=== PATIENT | male | born 1960 | race Caucasian/White ===

== ENCOUNTER 2019-07-19 20:04 | Inpatient (IN) | payer OTHER ==
[~2019-07-19] VITALS: Ht 182.9 cm; Wt 74.4 kg
[2019-07-19 20:10] VITALS: BP 110/85
--- NOTE | 2019-07-19 20:10 | NUR ---
ED Nurse Note: Pt brought in from home by GARRY BATISTA 40 for rectal bleed onset four days ago. Pt is also reporting multiple black tarry stools. Pt has hx of sciatica and is c/o back pain that radiates down his R leg and abdominal pain at this time. Pt has pale appearence and is cool to the touch. Pt connected to patient monitor and placed in gown. ERMD at bedside. IV line established and blood drawn by RN. Will continue to monitor.
[2019-07-19] MEDS ORDERED: Omnipaque-300 100ml vial INJ PRN (20:30)
[2019-07-19] MEDS ORDERED: Hydromorphone 0.5mg/0.5ml inj IVP ONE (20:30)
[2019-07-19 20:42] LABS: HEMATOCRIT 12.1 % (42.0-52.0); MEAN CORPUSCULAR VOLUME 94 FL (80-99); PLATELET COUNT 362 K/UL (150-450); RED BLOOD COUNT 1.29 M/UL (4.70-6.10); RED CELL DISTRIBUTION WIDTH 10.7 % (11.6-14.8); WHITE BLOOD COUNT 13.8 K/UL (4.8-10.8)
[2019-07-19 20:52] LABS: INR 1.1 (0.9-1.1)
[2019-07-19 20:53] LABS: ANION GAP 19 mmol/L (5-15); BLOOD UREA NITROGEN 59 mg/dL (7-18); CALCIUM 7.5 MG/DL (8.5-10.1); CARBON DIOXIDE 13 MMOL/L (21-32); CHLORIDE 111 MMOL/L (98-107); CREATININE 1.7 MG/DL (0.55-1.30); HEMOGLOBIN 4.3 G/DL (14.2-18.0); SODIUM 143 MMOL/L (136-145)
[2019-07-19 20:59] LABS: ALANINE AMINOTRANSFERASE 23 U/L (12-78); ALBUMIN 1.8 G/DL (3.4-5.0); ALBUMIN/GLOBULIN RATIO 0.6 (1.0-2.7); ALKALINE PHOSPHATASE 42 U/L (46-116); ASPARTATE AMINO TRANSFERASE 15 U/L (15-37); BILIRUBIN,TOTAL 0.1 MG/DL (0.2-1.0)
--- NOTE | 2019-07-19 21:10 | NUR ---
ED Nurse Note: Pt taken to CT at this time via mayra.
[2019-07-19 21:30] VITALS: BP 110/49
--- NOTE | 2019-07-19 22:07 | Diagnostic Imaging Report ---
Indication: Abdominal pain, rectal bleed onset 4 days ago, black tarry stools Technique: Spiral acquisitions obtained through the abdomen and pelvis. No oral contrast utilized, per emergency room physician request No IV contrast utilized, due to history of renal insufficiency. Multiplanar reconstructions were generated. Total dose length product 856 mGycm. CTDIvol(s) 15 mGy. Dose reduction achieved using automated exposure control Comparison: None Findings: There is colonic diverticulosis. No evidence of acute diverticulitis. Normal appendix. No small bowel distention. No free or loculated intraperitoneal gas or fluid is evident. There is an aortic endograft with juxtarenal fixation demonstrated. Patency is indeterminate in the absence of IV contrast. The aneurysm sac measures 4.9 cm transverse by 4.9 cm AP by 12.6 cm in length. There is no evidence of leakage or rupture. Lack of IV contrast limits assessment of the solid organs. The liver, gallbladder, bile ducts, pancreas, spleen, adrenals, kidneys are unremarkable. There is incidentally noted a circumaortic left renal vein. No renal or ureteral calculi, hydronephrosis, or hydroureter demonstrated. No pelvic mass or adenopathy. No retroperitoneal or mesenteric mass or adenopathy. The bladder is nondistended. There is apparent bladder wall thickening, probably artifact of under distention The included lung bases demonstrate hyperinflation and bullous changes. The bones are unremarkable, except for degenerative spondylosis changes. Impression: No definite acute abdominal process. No findings to suggest etiology of stated clinical history of GI bleed Aortic endograft in place. Patency is indeterminate in the absence of IV contrast. Also unable to assess for endoleaks. No evidence of leakage or rupture COPD changes noted at the lung bases Apparent bladder wall thickening, probably artifact of under distention but the possibility of cystitis should be considered Incidental findings as noted, including degenerative spondylosis, circumaortic left renal vein This agrees with the preliminary interpretation provided overnight by [facility] teleradiology service. The CT scanner at [facility] is accredited by the [employer] and the scans are performed using protocols designed to limit radiation exposure to as low as reasonably achievable to attain images of sufficient resolution adequate for diagnostic evaluation.
--- NOTE | 2019-07-19 23:00 | NUR ---
ED Nurse Note: Report given to SARAHI Mason.
--- NOTE | 2019-07-19 23:00 | NUR ---
ED Nurse Note: Pt stable to transfer to tele unit per ERMD. Pt is aaox4, no cardiac or respiratory distress, pt verbalized understanding of admission. Pt taken to tele unit via gurney with 2 RN, connected to trial manager. Pt has packed red blood cells infusing at this time via iv pump, endorsed order for 2nd unit of blood to receiving RN on tele unit. All pt belongings sent with pt to unit.
--- NOTE | 2019-07-19 23:10 | Emergency Room Report ---
History of Present Illness General Chief Complaint: Gastrointestinal Bleed Source: Patient Present Illness HPI 58-year-old male presents ED for evaluation. Coming by EMS from home. Black tarry stools for the last 4 days. Patient appears pale and clammy. States he has had similar bloody stools in the past. Also complaining of abdominal pain. Sharp, 9 out of 10, nonradiating. States he has had prior perforated viscus. Denies fevers or chills. Denies chest pain. Denies taking blood thinners. No other aggravating relieving factors. Denies any other associated symptoms Allergies: Coded Allergies: No Known Allergies (Unverified , 07/19/19) Patient History Past Surgical History: other - perforated ulcer Pertinent Family History: none Social History: Denies: smoking, alcohol use, drug use Immunizations: UTD Reviewed Nursing Documentation: PMH: Agreed; PSxH: Agreed Nursing Documentation-PM Past Medical History: No History, Except For Hx Cardiac Problems: Yes - PERCARDITIS Review of Systems All Other Systems: negative except mentioned in HPI Physical Exam Vital Signs Date Time Temp Pulse Resp B/P (MAP) Pulse Ox O2 Delivery O2 Flow Rate FiO2 07/19/19 19:59 98.1 106 22 110/85 (93) 98 Room Air Sp02 EP Interpretation: reviewed, normal General Appearance: no apparent distress, alert, GCS 15, non-toxic Head: normocephalic, atraumatic Eyes: bilateral eye normal inspection, bilateral eye PERRL ENT: hearing grossly normal, normal pharynx, no angioedema, normal voice Neck: full range of motion, supple/symm/no masses Respiratory: chest non-tender, lungs clear, normal breath sounds, speaking full sentences Cardiovascular #1: regular rate, rhythm, no edema Cardiovascular #2: 2+ carotid (R), 2+ carotid (L), 2+ radial (R), 2+ radial (L) , 2+ dorsalis pedis (R), 2+ dorsalis pedis (L) Gastrointestinal: normal bowel sounds, soft, non-distended, no rebound, tenderness Rectal: deferred Genitourinary: normal inspection, no CVA tenderness Musculoskeletal: back normal, normal range of motion, gait/station normal, non- tender Neurologic: alert, motor strength/tone normal, oriented x3, sensory intact, responsive, speech normal Psychiatric: judgement/insight normal, memory normal, mood/affect normal, no suicidal/homicidal ideation Reflexes: 3+ bicep (R), 3+ bicep (L), 3+ tricep (R), 3+ tricep (L), 3+ knee (R) , 3+ knee (L) Skin: pallor Lymphatic: no adenopathy Procedures Critical Care Time Critical Care Time i. I feel this is a highly complex case requiring extensive working including EKG/Rhythm strip, Xray/CT/US, Blood/urine lab work, repeat exams while in ED, and administration of strong opiates/narcotics for pain control, admission to hospital or close patient follow up. Total time: 60 min bedside evaluation and treatment excludes procedures (EKG). Reason for critical care: LGIB, hypotension, anemia Possible complications: hypotension, hypertension, OR, shock, arrhythmias, metabolic acidosis, end organ damage, respiratory failure. Interventions: labs, EKG, IVFS, CT, pain meds, blood transfusion Course: Presenting with black tarry stools. Abdominal pain. Hemoglobin 4.3. CT shows no acute process. Patient became somewhat hypotensive. Improving with IV fluids. Blood transfusion started. Consultations: nursing staff, EMS, family Performed by: Dr Allred Tolerated well condition = serious j. because of unstable vital signs this patient had a condition that could potentially threaten life or limb. I feel this is a critical patient who required my full attention while patient was considered critical. Total Critical Care Time excluding procedures was greater than 60 minutes Medical Decision Making Diagnostic Impression: Primary Impression: LGI bleed Additional Impressions: Anemia Qualified Codes: D64.9 - Anemia, unspecified Renal insufficiency Abdominal pain Qualified Codes: R10.84 - Generalized abdominal pain ER Course Hospital Course 58-year-old M presents to ED with rectal bleeding Differential diagnoses include: UGIB, LGIB, hemorrhoids Clinical course Patient placed on stretcher. threat monitoring analyst. After initial history and physical I ordered labs, IV fluids, pain meds, CT Labs - noted leukocytosis, Hb 4.3, BUN/Cr elevated CT A/P - no acute process EKG - NSR, no acute ischemic changes interpreted by me Patient became hypotensive in ED. IV fluids given. Blood transfusion started. BP slowly improving. Case discussed with Dr. Lazcano and he agreed to accept the patient to his service for further care and support I feel this is a highly complex case requiring extensive working including EKG/ Rhythm strip, Xray/CT/US, Blood/urine lab work, repeat exams while in ED, and administration of strong opiates/narcotics for pain control, admission to hospital or close patient follow up. Diagnosis - LGIB, anemia, renal insufficency, abdominal pain Patient admitted to telemetry in serious condition Labs Test 07/19/19 20:15 White Blood Count 13.8 K/UL (4.8-10.8) Red Blood Count 1.29 M/UL (4.70-6.10) Hemoglobin 4.3 G/DL (14.2-18.0) Hematocrit 12.1 % (42.0-52.0) Mean Corpuscular Volume 94 FL (80-99) Mean Corpuscular Hemoglobin 33.2 PG (27.0-31.0) Mean Corpuscular Hemoglobin Concent 35.3 G/DL (32.0-36.0) Red Cell Distribution Width 10.7 % (11.6-14.8) Platelet Count 362 K/UL (150-450) Mean Platelet Volume 5.4 FL (6.5-10.1) Neutrophils (%) (Auto) % (45.0-75.0) Lymphocytes (%) (Auto) % (20.0-45.0) Monocytes (%) (Auto) % (1.0-10.0) Eosinophils (%) (Auto) % (0.0-3.0) Basophils (%) (Auto) % (0.0-2.0) Differential Total Cells Counted 100 Neutrophils % (Manual) 74 % (45-75) Lymphocytes % (Manual) 18 % (20-45) Monocytes % (Manual) 6 % (1-10) Eosinophils % (Manual) 0 % (0-3) Basophils % (Manual) 0 % (0-2) Band Neutrophils 2 % (0-8) Platelet Estimate Adequate Platelet Morphology Normal Hypochromasia 2+ Anisocytosis 2+ Prothrombin Time 11.3 SEC (9.30-11.50) Prothromb Time International Ratio 1.1 (0.9-1.1) Activated Partial Thromboplast Time 21 SEC (23-33) Sodium Level 143 MMOL/L (136-145) Potassium Level 5.0 MMOL/L (3.5-5.1) Chloride Level 111 MMOL/L (98-107) Carbon Dioxide Level 13 MMOL/L (21-32) Anion Gap 19 mmol/L (5-15) Blood Urea Nitrogen 59 mg/dL (7-18) Creatinine 1.7 MG/DL (0.55-1.30) Estimat Glomerular Filtration Rate 41.5 mL/min (>60) Glucose Level 209 MG/DL (74-106) Calcium Level 7.5 MG/DL (8.5-10.1) Total Bilirubin 0.1 MG/DL (0.2-1.0) Aspartate Amino Transf (AST/SGOT) 15 U/L (15-37) Alanine Aminotransferase (ALT/SGPT) 23 U/L (12-78) Alkaline Phosphatase 42 U/L (46-116) Total Protein 4.7 G/DL (6.4-8.2) Albumin 1.8 G/DL (3.4-5.0) Globulin 2.9 g/dL Albumin/Globulin Ratio 0.6 (1.0-2.7) Lipase 56 U/L (73-393) EKG Diagnostic Results Rate: normal Rhythm: NSR ST Segments: no acute changes ASA given to the pt in ED: No Rhythm Strip Diag. Results EP Interpretation: yes Rhythm: NSR, no PVC's, no ectopy CT/MRI/US Diagnostic Results CT/MRI/US Diagnostic Results : Imaging Test Ordered: CT A/P Impression CT ABDOMEN & PELVIS With Contrast: Normal cardiac size. Normal abdominal viscera including gallbladder and adrenal glands. Decompressed stomach with no hiatal hernia. Unremarkable small bowel and colon with no signs of bowel obstruction. No focal inflammatory process. Distinct appendix not visualized. Postoperative changes along the aorta with endovascular stent extending to the bilateral common iliac arteries. Maximum diameter of the aorta measures 4.8 x 4.8 cm. No surrounding inflammatory process or evidence of leak. Degenerative disease of the spine. Cystic/emphysematous changes of the lung bases with minimal scarring, otherwise clear. No pleural effusion. Last Vital Signs Date Time Temp Pulse Resp B/P (MAP) Pulse Ox O2 Delivery O2 Flow Rate FiO2 07/19/19 22:25 97.1 95 24 07/19/19 21:30 110/49 100 Room Air Status: improved Disposition: ADMITTED INPATIENT Condition: Serious Referrals: [facility],REFERRING (PCP) Panfilo Allred MD Jul 19, 2019 23:10
--- NOTE | 2019-07-19 23:15 | NUR ---
NURSE NOTES: Pt received from SARAHI Sauceda alert and oriented x4 with no acute s/s of distress noted. Pale with notable weakness noted. IV site asymptomatic and patent on L hand 18g and R ac 20g, running to 1 Unit of PRBC. Belongings with patient upon admission, including watch, reading glasses, Samsung cellphone, and hollingsworth (three $20, one $5, and two $1). Patient refused to have valuables and hollingsworth placed in safe. Bed in lowest position, call light and belongings within reach. Per pt, he started developing black stool for the last 4 days as he has been taking Advil (16 tablets per day, unknown dosage per pt) for the last month which he has recently switched to Ibuprofen 600 mg on 07/16/2019 to self-medicate his back pain from his sciatica.
[2019-07-19 23:55] VITALS: BP 125/57
[2019-07-20] MEDS: HYDROcodone/Acetamin 10/325 tab ORAL PRN ×5 (00:06→15:41)
--- NOTE | 2019-07-20 00:10 | NUR ---
NURSE NOTES: Received admission orders from Dr. Lazcano. - Pls give 4 Units of PRBC to patient in total tonight. - Start NS at 75 for maintenance - Protonix 40 mg BID PO - Zofran 4 mg q4h PRN for nausea and vomiting - CBC, BMP in AM - clear liquid - Physician Consult - Allen for GI - Stanton 10/325 q4h PRN for pain - Full code - Home meds - hold metoprolol 75 mg PO daily, and hold ibuprofen 600 mg q12h PRN for pain.
[2019-07-20] MEDS ORDERED: IBUPROFEN600 MG ORAL (01:22)
[2019-07-20] MEDS ORDERED: metoprolol tartrate ORAL (01:25)
[2019-07-20 04:00] VITALS: BP 134/66
--- NOTE | 2019-07-20 05:55 | NUR ---
NURSE NOTES: Patient brought medications - Metoprolol 25 mg and Ibuprofen 600 mg - with him from home, dropped off to pharmacy and recorded in medication reconciliation.
--- NOTE | 2019-07-20 06:01 | NUR ---
NURSE NOTES: Pt requested to have nicotine patch as he is a current smoker. Per pt, he has been smoking for the last 40 years and he smokes 5-10 cigarettes a day. Per audrey Severino to continue nicotine patch for patient. RN spoke with Nadine pharmacist from [facility] who suggested dosage of 14 mg Nicotine patch qdaily transdermal. Will carry out orders.
--- NOTE | 2019-07-20 07:15 | NUR ---
NURSE NOTES: Nurse report given by SARAHI Ruiz. Patient's awake and eating breakfast in bed. AO x 4, denies pain, no s/s of distress or SOB, respiratory rate is even and unlabored. Bed low and locked, call light within reach, side rails x 2, bed alarm is armed. IV is running fluid, no s/s of tenderness or infiltration. Rectal bleeding is noted. Will continue to monitor.
--- NOTE | 2019-07-20 07:15 | NUR ---
HAND-OFF: Report given to SARAHI Ascencio.
[2019-07-20 07:17] LABS: HEMATOCRIT 24.2 % (42.0-52.0); HEMOGLOBIN 8.5 G/DL (14.2-18.0); MEAN CORPUSCULAR VOLUME 91 FL (80-99); PLATELET COUNT 254 K/UL (150-450); RED BLOOD COUNT 2.64 M/UL (4.70-6.10); RED CELL DISTRIBUTION WIDTH 11.9 % (11.6-14.8)
[2019-07-20 07:41] LABS: ANION GAP 9 mmol/L (5-15); BLOOD UREA NITROGEN 50 mg/dL (7-18); CALCIUM 7.4 MG/DL (8.5-10.1); CARBON DIOXIDE 21 MMOL/L (21-32); CHLORIDE 115 MMOL/L (98-107); CREATININE 1.1 MG/DL (0.55-1.30); POTASSIUM 3.7 MMOL/L (3.5-5.1); SODIUM 145 MMOL/L (136-145)
[2019-07-20 08:00] VITALS: BP 122/72
--- NOTE | 2019-07-20 08:14 | History & Physical ---
History and Physical History & Physicial 58-year-old male presents for GIB. Patient with black tarry stools for the last 4 days. Now underwent transfusion. States he has had similar bloody stools in the past.+ abdominal pain. States he has had prior perforated viscus in the past. Denies fevers or chills. Denies chest pain. Denies taking blood thinners. No other aggravating relieving factors. Denies any other associated symptoms Allergies: No Known Allergies (Unverified , 07/19/19) Past Surgical History: perforated ulcer Pertinent Family History: none Social History: Denies: smoking, alcohol use, drug use Reviewed of systems: otherwise negative Physical WDWN NAD clear breath sounds bilaterally without rhonchi or wheeze [id number] without MRG NABS nontender no HSM no CCE nonfocal Laboratory Tests Test 07/19/19 20:15 07/20/19 06:38 White Blood Count 13.8 K/UL (4.8-10.8) H 13.0 K/UL (4.8-10.8) H Red Blood Count 1.29 M/UL (4.70-6.10) L 2.64 M/UL (4.70-6.10) L Hemoglobin 4.3 G/DL (14.2-18.0) *L 8.5 G/DL (14.2-18.0) #L Hematocrit 12.1 % (42.0-52.0) L 24.2 % (42.0-52.0) #L Mean Corpuscular Volume 94 FL (80-99) 91 FL (80-99) Mean Corpuscular Hemoglobin 33.2 PG (27.0-31.0) H 32.3 PG (27.0-31.0) H Mean Corpuscular Hemoglobin Concent 35.3 G/DL (32.0-36.0) 35.3 G/DL (32.0-36.0) Red Cell Distribution Width 10.7 % (11.6-14.8) L 11.9 % (11.6-14.8) Platelet Count 362 K/UL (150-450) 254 K/UL (150-450) Mean Platelet Volume 5.4 FL (6.5-10.1) L 5.8 FL (6.5-10.1) L Neutrophils (%) (Auto) % (45.0-75.0) % (45.0-75.0) Lymphocytes (%) (Auto) % (20.0-45.0) % (20.0-45.0) Monocytes (%) (Auto) % (1.0-10.0) % (1.0-10.0) Eosinophils (%) (Auto) % (0.0-3.0) % (0.0-3.0) Basophils (%) (Auto) % (0.0-2.0) % (0.0-2.0) Differential Total Cells Counted 100 Neutrophils % (Manual) 74 % (45-75) Pending Lymphocytes % (Manual) 18 % (20-45) L Pending Monocytes % (Manual) 6 % (1-10) Eosinophils % (Manual) 0 % (0-3) Basophils % (Manual) 0 % (0-2) Band Neutrophils 2 % (0-8) Platelet Estimate Adequate Pending Platelet Morphology Normal Pending Hypochromasia 2+ Anisocytosis 2+ Prothrombin Time 11.3 SEC (9.30-11.50) Prothromb Time International Ratio 1.1 (0.9-1.1) Activated Partial Thromboplast Time 21 SEC (23-33) L Sodium Level 143 MMOL/L (136-145) 145 MMOL/L (136-145) Potassium Level 5.0 MMOL/L (3.5-5.1) 3.7 MMOL/L (3.5-5.1) Chloride Level 111 MMOL/L (98-107) H 115 MMOL/L (98-107) H Carbon Dioxide Level 13 MMOL/L (21-32) L 21 MMOL/L (21-32) Anion Gap 19 mmol/L (5-15) H 9 mmol/L (5-15) Blood Urea Nitrogen 59 mg/dL (7-18) H 50 mg/dL (7-18) H Creatinine 1.7 MG/DL (0.55-1.30) H 1.1 MG/DL (0.55-1.30) Estimat Glomerular Filtration Rate 41.5 mL/min (>60) > 60 mL/min (>60) Glucose Level 209 MG/DL (74-106) H 110 MG/DL (74-106) #H Calcium Level 7.5 MG/DL (8.5-10.1) L 7.4 MG/DL (8.5-10.1) L Total Bilirubin 0.1 MG/DL (0.2-1.0) L Aspartate Amino Transf (AST/SGOT) 15 U/L (15-37) Alanine Aminotransferase (ALT/SGPT) 23 U/L (12-78) Alkaline Phosphatase 42 U/L (46-116) L Total Protein 4.7 G/DL (6.4-8.2) L Albumin 1.8 G/DL (3.4-5.0) L Globulin 2.9 g/dL Albumin/Globulin Ratio 0.6 (1.0-2.7) L Lipase 56 U/L (73-393) L IMPRESSION gib ANEMIA S/P TRANSFUSION SCIATICA PLAN monitor HH pain management GI evaluation protonix follow up vitals and recommend impression, plan, and exam edited and reviewed in detail care discussed with Juan Guerrero MD Jul 20, 2019 08:14
--- NOTE | 2019-07-20 11:07 | NUR ---
*-* INSURANCE *-* ALL AVAILABLE CLINICALS HAVE BEEN FAXED TO: [facility] NCM: GRACIELA P- [phone] F- [phone]............REVIEW/CLINICAL
--- NOTE | 2019-07-20 11:33 | NUR ---
NURSE NOTES: Left several messages to Dr. Lazcano's regarding patient's complain of excruciating pain on left leg. Patient requests to have pain medication that is stronger than [place]. Still awaiting for MD response.
[2019-07-20 12:00] VITALS: BP 118/72
[2019-07-20 16:00] VITALS: BP 117/73
--- NOTE | 2019-07-20 16:15 | NUR ---
CASE MANAGEMENT:REVIEW 58 YR OLD MALE BIBA FROM HOME CC: RECTAL BLEEDING. TARRY STOOLS SI: LGIB 98.0 106 22 110/85 98% ON RA WBC+13.8 H/H-4.3/12.1 IS: IV DILAUDID 1L NS BOLUS X2 CT ABD TRANSFUSE 4 UNITS PRBC'S : TO TELEMETRY
--- NOTE | 2019-07-20 17:19 | NUR ---
NURSE NOTES: Patient's receiving the last bag of 1 unit of PRBC. Patient's first vital sign: BP 125/72, Temp 97.9, Pulse 92. Patient's in stable condition. Started transfusion at 0950. Patient tolerated well, no s/s of adverse reaction, denies flank pain, no fever, no rash. Patient completed transfusion at 1230. Post transfusion vital sign: BP 144/77, Temp 97.2, Pulse 89. Patient's in stable condition. Will continue to monitor.
--- NOTE | 2019-07-20 18:30 | Consultation ---
DATE OF CONSULTATION: 07/20/2019 GASTROENTEROLOGY CONSULTATION CONSULTING PHYSICIAN: Jyoti Villa M.D. CHIEF COMPLAINT: I was asked to see this patient by Dr. Juan Lazcano, for evaluation of gastrointestinal bleeding and anemia. HISTORY OF PRESENT ILLNESS: The patient is a pleasant 58-year-old white man with a longstanding history of back pain, who has noticed worsening of his back pain with sciatica type of symptoms for the past month. He has been taking up to 16 Advil tablets a day and had noted that the stool is becoming black over the past week or so. The patient had a history of a perforated peptic ulcer about two years ago and was admitted to the hospital where he underwent an emergency laparoscopic surgery which has been available at this time. He came to the emergency room. However, evaluation in the emergency room showed severe anemia. Therefore, he was admitted to the hospital for further evaluation and care. He has had several blood transfusions overnight and feels better. PAST MEDICAL HISTORY: History of chronic back pain, sciatica, peptic ulcer disease, perforated ulcer, history of abdominal aortic aneurysm, and history of pericarditis. FAMILY HISTORY: Positive for hypertension. SOCIAL HISTORY: The patient is single. He does not have children. He does not smoke. Also drinking intermittently. ALLERGIES: None. MEDICATIONS: See the chart list for details. PHYSICAL EXAMINATION: GENERAL: A well-developed, well-nourished white man, seen in his room. HEENT: Normocephalic and atraumatic. Sclerae anicteric. Oropharynx clear. NECK: Supple. CHEST: Clear to auscultation. CARDIOVASCULAR: Revealed regular rate. ABDOMEN: Soft. Good bowel sounds. There is no organomegaly. EXTREMITIES: Revealed no edema. LABORATORY DATA: Noted. ASSESSMENT: This patient presents with melena and severe anemia, which in the setting of significant nonsteroidal anti-inflammatory drug use related peptic ulcer disease. The patient has already had a colonoscopy in June 2017, but the endoscopy will have to be repeated due to the melena. The indications, risks, alternatives, and possible complications of the procedure were explained to the patient and an informed consent was obtained. RECOMMENDATIONS: 1. Clear liquid diet. 2. Transfuse as needed. 3. Proton pump inhibitor. 4. Endoscopy tomorrow. Thank you for asking me to participate in care of this patient. Jyoti Villa M.D. DR: FLORENTINO JOB#: [id number] CC: ELOINA
[2019-07-20 19:07] LABS: BASOPHILS % (AUTO) 1.2 % (0.0-2.0); EOSINOPHILS % (AUTO) 0.6 % (0.0-3.0); HEMATOCRIT 25.6 % (42.0-52.0); LYMPHOCYTES % (AUTO) 17.3 % (20.0-45.0); MEAN CORPUSCULAR VOLUME 91 FL (80-99); MONOCYTES % (AUTO) 6.8 % (1.0-10.0); NEUTROPHILS % (AUTO) 74.1 % (45.0-75.0); PLATELET COUNT 263 K/UL (150-450); RED BLOOD COUNT 2.82 M/UL (4.70-6.10); RED CELL DISTRIBUTION WIDTH 10.9 % (11.6-14.8)
--- NOTE | 2019-07-20 19:20 | NUR ---
NURSE NOTES: Received report from SARAHI Ascencio. Patient is awake, lying in semi solano's; resting comfortably. A/Ox4. Patient complains of excruciating pain at his left thigh radiating down towards his left leg, with a pain scale of 10/10. Patient stated "I already took Crockett 3x today and is not working for me. I need a stronger pain medication." No signs of acute distress noted. Checked IV site and flushed. No erythema, bleeding or infiltration noted. Bed at lowest position, brakes on, siderailsx2. Call light within reach. Will continue to monitor.
--- NOTE | 2019-07-20 19:40 | NUR ---
HAND-OFF: Report given to SARAHI Berg. Patient's stable, plan of care endorsed.
[2019-07-20 20:00] VITALS: BP 114/70
--- NOTE | 2019-07-20 20:00 | NUR ---
NURSE NOTES: Paged Dr. Lazcano for change of pain medication. Awaiting for callback.
--- NOTE | 2019-07-20 20:10 | NUR ---
NURSE NOTES: Per Dr. Lazcano, to give Percocet 10/325 Q4 PRN. Noted and carried out.
[2019-07-20] MEDS ORDERED: HYDROcodone/Acetamin 10/325 tab ORAL PRN (20:30)
[2019-07-21] VITALS (10 sets, daily range): BP systolic 113–146; BP diastolic 59–88
--- NOTE | 2019-07-21 01:10 | NUR ---
NURSE NOTES: Resting throughout the night. No significant change of condition noted. Addendum: 07/21/19 at 0110 by Morena Armstrong RN Will continue to monitor.
[2019-07-21 07:16] LABS: BASOPHILS % (AUTO) 0.5 % (0.0-2.0); EOSINOPHILS % (AUTO) 1.5 % (0.0-3.0); HEMATOCRIT 25.2 % (42.0-52.0); HEMOGLOBIN 8.9 G/DL (14.2-18.0); LYMPHOCYTES % (AUTO) 21.7 % (20.0-45.0); MEAN CORPUSCULAR VOLUME 92 FL (80-99); MONOCYTES % (AUTO) 7.9 % (1.0-10.0); NEUTROPHILS % (AUTO) 68.3 % (45.0-75.0); PLATELET COUNT 279 K/UL (150-450); RED BLOOD COUNT 2.75 M/UL (4.70-6.10); RED CELL DISTRIBUTION WIDTH 12.8 % (11.6-14.8); WHITE BLOOD COUNT 9.2 K/UL (4.8-10.8)
--- NOTE | 2019-07-21 07:20 | NUR ---
HAND-OFF: Report given to Olivia/SARAHI Granado. Plan of care endorsed.
[2019-07-21 07:23] LABS: ALANINE AMINOTRANSFERASE 22 U/L (12-78); ALBUMIN 1.9 G/DL (3.4-5.0); ALBUMIN/GLOBULIN RATIO 0.7 (1.0-2.7); ALKALINE PHOSPHATASE 45 U/L (46-116); ANION GAP 11 mmol/L (5-15); ASPARTATE AMINO TRANSFERASE 20 U/L (15-37); BILIRUBIN,TOTAL 0.3 MG/DL (0.2-1.0); BLOOD UREA NITROGEN 16 mg/dL (7-18); CARBON DIOXIDE 22 MMOL/L (21-32); CHLORIDE 114 MMOL/L (98-107); CREATININE 0.8 MG/DL (0.55-1.30); POTASSIUM 3.3 MMOL/L (3.5-5.1); SODIUM 146 MMOL/L (136-145)
[2019-07-21] MEDS ORDERED: Propofol 200mg/20ml IV ONE (08:00)
[2019-07-21] MEDS ORDERED: Lidocaine 1% MPF 10mg/ml 5ml ONE (08:00)
[2019-07-21] MEDS ORDERED: NS 500ML IVPB ONE (08:03)
--- NOTE | 2019-07-21 08:12 | NUR ---
NURSE NOTES: Patient stable AOx4 with complaints of sciatic pain. No s/sx of distress. RR even and unlabored on RA. Breath sounds clear. Bowel sounds present. 5/5 hand strengh. Side rails upx2, call light within reach, bed low and locked. Will continue to monitor. Addendum: 07/21/19 at 0814 by LEANDER ZELAYA RN Taken down for EGD
--- NOTE | 2019-07-21 08:13 | Anethesia Preoperative Eval ---
Anesthesia Pre-op PMH/ROS General Date of Evaluation: Jul 21, 2019 Time of Evaluation: 07:45 Anesthesiologist: sean ASA Score: ASA 3 Mallampati Score Class I : Soft palate, uvula, fauces, pillars visible Class II: Soft palate, uvula, fauces visible Class III: Soft palate, base of uvula visible Class IV: Only hard plate visible Mallampati Classification: Class II Surgeon: jacques Diagnosis: anemia, gi bleed Surgical Procedure: egd Anesthesia History: none Social History: current smoker Family History: no anesthesia problems Allergies: Coded Allergies: No Known Allergies (Unverified , 07/19/19) Medications: see eMAR Patient NPO?: Yes Past Medical History Cardiovascular: Reports: other - hx/o aaa Gastrointestinal/Genitourinary: Reports: other - renal insufficiency Hematology/Immune: Reports: anemia Musculoskeletal/Integumentary: Reports: other - sciatica Anesthesia Pre-op Phys. Exam Physician Exam Last Vital Signs Date Time Temp Pulse Resp B/P (MAP) Pulse Ox O2 Delivery O2 Flow Rate FiO2 07/21/19 05:26 98.1 07/21/19 04:00 78 07/21/19 04:00 18 115/65 (82) 97 07/20/19 21:00 Room Air Constitutional: NAD Neurologic: CN 2-12 intact Cardiovascular: RRR Respiratory: CTA Gastrointestinal: S/NT/ND Airway Exam Mallampati Score: Class II MO: limited Neck: flexible TMD: 2fb ROM: limited Anesthesia Pre-op A/P Labs Hematology Test 07/20/19 17:46 07/21/19 06:12 White Blood Count 12.0 K/UL (4.8-10.8) H 9.2 K/UL (4.8-10.8) Red Blood Count 2.82 M/UL (4.70-6.10) L 2.75 M/UL (4.70-6.10) L Hemoglobin 9.0 G/DL (14.2-18.0) L 8.9 G/DL (14.2-18.0) L Hematocrit 25.6 % (42.0-52.0) L 25.2 % (42.0-52.0) L Mean Corpuscular Volume 91 FL (80-99) 92 FL (80-99) Mean Corpuscular Hemoglobin 32.1 PG (27.0-31.0) H 32.2 PG (27.0-31.0) H Mean Corpuscular Hemoglobin Concent 35.4 G/DL (32.0-36.0) 35.2 G/DL (32.0-36.0) Red Cell Distribution Width 10.9 % (11.6-14.8) L 12.8 % (11.6-14.8) Platelet Count 263 K/UL (150-450) 279 K/UL (150-450) Mean Platelet Volume 5.6 FL (6.5-10.1) L 5.2 FL (6.5-10.1) L Neutrophils (%) (Auto) 74.1 % (45.0-75.0) 68.3 % (45.0-75.0) Lymphocytes (%) (Auto) 17.3 % (20.0-45.0) L 21.7 % (20.0-45.0) Monocytes (%) (Auto) 6.8 % (1.0-10.0) 7.9 % (1.0-10.0) Eosinophils (%) (Auto) 0.6 % (0.0-3.0) 1.5 % (0.0-3.0) Basophils (%) (Auto) 1.2 % (0.0-2.0) 0.5 % (0.0-2.0) Chemistry Test 07/21/19 06:12 Sodium Level 146 MMOL/L (136-145) H Potassium Level 3.3 MMOL/L (3.5-5.1) L Chloride Level 114 MMOL/L (98-107) H Carbon Dioxide Level 22 MMOL/L (21-32) Anion Gap 11 mmol/L (5-15) Blood Urea Nitrogen 16 mg/dL (7-18) Creatinine 0.8 MG/DL (0.55-1.30) Estimat Glomerular Filtration Rate > 60 mL/min (>60) Glucose Level 91 MG/DL (74-106) Calcium Level 7.0 MG/DL (8.5-10.1) L Magnesium Level 1.9 MG/DL (1.8-2.4) Total Bilirubin 0.3 MG/DL (0.2-1.0) Aspartate Amino Transf (AST/SGOT) 20 U/L (15-37) Alanine Aminotransferase (ALT/SGPT) 22 U/L (12-78) Alkaline Phosphatase 45 U/L (46-116) L Total Protein 4.7 G/DL (6.4-8.2) L Albumin 1.9 G/DL (3.4-5.0) L Globulin 2.8 g/dL Albumin/Globulin Ratio 0.7 (1.0-2.7) L Risk Assessment & Plan Assessment: asa3 Plan: mac Status Change Before Surgery: No Pre-Antibiotics Drug: Lynn Mcmanus MD Jul 21, 2019 08:13
[2019-07-21] MEDS ORDERED: fentaNYL 100 mcg/2 mL IV PRN (08:15)
[2019-07-21] MEDS ORDERED: Midazolam 2mg/2ml Inj IVP PRN (08:15)
[2019-07-21] MEDS ORDERED: DiphenhydrAMINE 50mg/ml Inj IVP PRN (08:15)
[2019-07-21] MEDS ORDERED: Atropine Inj 1mg/10ml Syr IV PRN (08:15)
--- NOTE | 2019-07-21 08:17 | General Progress Note ---
Assessment/Plan Assessment/Plan: Assessment - Melena - Anemia - low albumin - ?malnutrition, ? proteinuria - Chronic back pain, Sciatica, NSAID use - h/o PUD - h/o AAA Recommendations - NPO - PPI - EGD - check U/A Subjective Allergies: Coded Allergies: No Known Allergies (Unverified , 07/19/19) Objective Last 24 Hour Vital Signs Date Time Temp Pulse Resp B/P (MAP) Pulse Ox O2 Delivery O2 Flow Rate FiO2 07/21/19 05:26 98.1 07/21/19 04:00 78 07/21/19 04:00 98.6 89 18 115/65 (82) 97 07/21/19 00:00 98.1 108 18 115/74 (88) 97 07/21/19 00:00 86 07/20/19 21:00 Room Air 07/20/19 20:00 81 07/20/19 20:00 98.1 90 18 114/70 (85) 97 07/20/19 16:00 97.3 79 19 117/73 (88) 99 07/20/19 16:00 79 07/20/19 12:04 97.9 07/20/19 12:00 97.3 88 20 118/72 (87) 97 07/20/19 12:00 86 07/20/19 09:00 Room Air Intake and Output 07/20/19 07/21/19 19:00 07:00 Intake Total 490 ml Output Total 800 ml Balance 490 ml -800 ml Intake Oral 490 ml Output Urine Total 800 ml # Voids 3 # Bowel Movements 4 2 Laboratory Tests 07/20/19 17:46: White Blood Count 12.0H, Red Blood Count 2.82L, Hemoglobin 9.0L, Hematocrit 25.6L, Mean Corpuscular Volume 91, Mean Corpuscular Hemoglobin 32.1H, Mean Corpuscular Hemoglobin Concent 35.4, Red Cell Distribution Width 10.9L, Platelet Count 263, Mean Platelet Volume 5.6L, Neutrophils (%) (Auto) 74.1, Lymphocytes (%) (Auto) 17.3L, Monocytes (%) (Auto) 6.8, Eosinophils (%) (Auto) 0.6, Basophils (%) (Auto) 1.2 07/21/19 06:12: White Blood Count 9.2, Red Blood Count 2.75L, Hemoglobin 8.9L, Hematocrit 25.2L , Mean Corpuscular Volume 92, Mean Corpuscular Hemoglobin 32.2H, Mean Corpuscular Hemoglobin Concent 35.2, Red Cell Distribution Width 12.8, Platelet Count 279, Mean Platelet Volume 5.2L, Neutrophils (%) (Auto) 68.3, Lymphocytes ( %) (Auto) 21.7, Monocytes (%) (Auto) 7.9, Eosinophils (%) (Auto) 1.5, Basophils (%) (Auto) 0.5, Sodium Level 146H, Potassium Level 3.3L, Chloride Level 114H, Carbon Dioxide Level 22, Anion Gap 11, Blood Urea Nitrogen 16, Creatinine 0.8, Estimat Glomerular Filtration Rate > 60, Glucose Level 91, Calcium Level 7.0L, Magnesium Level 1.9, Total Bilirubin 0.3, Aspartate Amino Transf (AST/SGOT) 20, Alanine Aminotransferase (ALT/SGPT) 22, Alkaline Phosphatase 45L, Total Protein 4.7L, Albumin 1.9L, Globulin 2.8, Albumin/Globulin Ratio 0.7L Height (Feet): 6 Height (Inches): 0.00 Weight (Pounds): 164 Jyoti Villa MD Jul 21, 2019 08:17
--- NOTE | 2019-07-21 08:17 | Pre-Procedure Note/Attestation ---
Pre-Procedure Note/Attestation Complete Prior to Procedure Planned Procedure: not applicable Procedure Narrative: egd Indications for Procedure Pre-Operative Diagnosis: gi bleed Attestation I attest that I discussed the nature of the procedure; its benefits; risks and complications; and alternatives (and the risks and benefits of such alternatives ), prior to the procedure, with the patient (or the patient's legal senior account representative). I attest that, if there was a reasonable possibility of needing a blood transfusion, the patient (or the patient's legal senior account representative) was given the [facility] standardized written summary, pursuant to the [place] Blood Safety Act ([place] Health and Safety Code # 1645, as amended). I attest that I re-evaluated the patient just prior to the surgery and that there has been no change in the patient's H&P, except as documented below: Jyoti Villa MD Jul 21, 2019 08:17
--- NOTE | 2019-07-21 08:48 | Endoscopy Procedure Note ---
Endoscopy Procedure Note General Indication for Procedure: GIB Procedures Performed: EGD Operative Findings/Diagnosis: erosive and ulcerative gastritis - bx, 2 cm HH, irregular z - biopsied Pt Tolerated Procedure Well: Yes Estimated Blood Loss: minimal Anesthesia Anesthesiologist: James Sears Anesthesia: MAC Inserted Devices Implant(s) used?: No GI Core Measures 50 yrs or older w/o bx or poly: Not Applicable 10yrs. F/U recommended: Not Applicable Jyoti Villa MD Jul 21, 2019 08:48
--- NOTE | 2019-07-21 08:49 | Brief Operative Note ---
Immediate Post Operative Note Operative Note Chief Complaint: GIB Pre-op Diagnosis: gi bleed Procedure: EGD Specimen: yes Complications: none Condition: stable Fluids: Per anesthesia Implant(s) used?: No Jyoti Villa MD Jul 21, 2019 08:49
--- NOTE | 2019-07-21 09:33 | Immediate Post-Op Evaluation ---
Immediate Post-Op Evalulation Immediate Post-Op Evalulation Procedure: egd w/bx Date of Evaluation: Jul 21, 2019 Time of Evaluation: 08:55 IV Fluids: 100ml 0.9ns Blood Products: none Estimated Blood Loss: negligible Blood Pressure Systolic: 132 Blood Pressure Diastolic: 77 Pulse Rate: 93 Respiratory Rate: 18 O2 Sat by Pulse Oximetry: 99 Temperature (Fahrenheit): 98.1 Pain Score (1-10): 0 Nausea: No Vomiting: No Complications none Patient Status: awake, reacts, patent Hydration Status: adequate Drug: Lynn Mcmanus MD Jul 21, 2019 09:33
--- NOTE | 2019-07-21 09:34 | 48 Hour Post Anesthesia Eval ---
Post Anesthesia Evaluation Procedure: egd w/bx Date of Evaluation: Jul 21, 2019 Time of Evaluation: 08:57 Blood Pressure Systolic: 125 0: 74 Pulse Rate: 94 Respiratory Rate: 18 Temperature (Fahrenheit): 98.1 O2 Sat by Pulse Oximetry: 100 Airway: patent Nausea: No Vomiting: No Pain Intensity: 0 Hydration Status: adequate Cardiopulmonary Status: stable Mental Status/LOC: patient returned to baseline Post-Anesthesia Complications: none Follow-up care needed: N/A Lynn Parker MD Jul 21, 2019 09:34
--- NOTE | 2019-07-21 12:56 | General Progress Note ---
Assessment/Plan Assessment/Plan: anemia s/p transfusion LGIB gastritis PLAN HH improved iron and prilosec on dc no further work up planned impression, plan, and exam edited and reviewed in detail care discussed with RN Subjective Allergies: Coded Allergies: No Known Allergies (Unverified , 07/19/19) Subjective findings noted d/w gi Objective Last 24 Hour Vital Signs Date Time Temp Pulse Resp B/P (MAP) Pulse Ox O2 Delivery O2 Flow Rate FiO2 07/21/19 11:59 97.7 106 20 120/59 (79) 95 07/21/19 10:23 94 18 100 07/21/19 09:33 93 18 99 07/21/19 09:05 98.3 91 20 122/76 100 Nasal Cannula 3 07/21/19 09:00 Room Air 07/21/19 08:53 94 22 125/74 99 Nasal Cannula 3 07/21/19 08:48 96 18 128/71 99 Nasal Cannula 3 07/21/19 08:43 98.1 93 18 132/77 99 Nasal Cannula 3 07/21/19 08:03 98 07/21/19 08:00 97.7 100 20 146/88 (107) 95 07/21/19 05:26 98.1 07/21/19 04:00 78 07/21/19 04:00 98.6 89 18 115/65 (82) 97 07/21/19 00:00 98.1 108 18 115/74 (88) 97 07/21/19 00:00 86 07/20/19 21:00 Room Air 07/20/19 20:00 81 07/20/19 20:00 98.1 90 18 114/70 (85) 97 07/20/19 16:00 97.3 79 19 117/73 (88) 99 07/20/19 16:00 79 Intake and Output 07/20/19 07/21/19 19:00 07:00 Intake Total 490 ml Output Total 800 ml Balance 490 ml -800 ml Intake Oral 490 ml Output Urine Total 800 ml # Voids 3 # Bowel Movements 4 2 Laboratory Tests 07/20/19 17:46: White Blood Count 12.0H, Red Blood Count 2.82L, Hemoglobin 9.0L, Hematocrit 25.6L, Mean Corpuscular Volume 91, Mean Corpuscular Hemoglobin 32.1H, Mean Corpuscular Hemoglobin Concent 35.4, Red Cell Distribution Width 10.9L, Platelet Count 263, Mean Platelet Volume 5.6L, Neutrophils (%) (Auto) 74.1, Lymphocytes (%) (Auto) 17.3L, Monocytes (%) (Auto) 6.8, Eosinophils (%) (Auto) 0.6, Basophils (%) (Auto) 1.2 07/21/19 06:12: White Blood Count 9.2, Red Blood Count 2.75L, Hemoglobin 8.9L, Hematocrit 25.2L , Mean Corpuscular Volume 92, Mean Corpuscular Hemoglobin 32.2H, Mean Corpuscular Hemoglobin Concent 35.2, Red Cell Distribution Width 12.8, Platelet Count 279, Mean Platelet Volume 5.2L, Neutrophils (%) (Auto) 68.3, Lymphocytes ( %) (Auto) 21.7, Monocytes (%) (Auto) 7.9, Eosinophils (%) (Auto) 1.5, Basophils (%) (Auto) 0.5, Sodium Level 146H, Potassium Level 3.3L, Chloride Level 114H, Carbon Dioxide Level 22, Anion Gap 11, Blood Urea Nitrogen 16, Creatinine 0.8, Estimat Glomerular Filtration Rate > 60, Glucose Level 91, Calcium Level 7.0L, Magnesium Level 1.9, Total Bilirubin 0.3, Aspartate Amino Transf (AST/SGOT) 20, Alanine Aminotransferase (ALT/SGPT) 22, Alkaline Phosphatase 45L, Total Protein 4.7L, Albumin 1.9L, Globulin 2.8, Albumin/Globulin Ratio 0.7L Height (Feet): 6 Height (Inches): 0.00 Weight (Pounds): 164 Objective WDWN NAD clear breath sounds bilaterally without rhonchi or wheeze [id number] without MRG NABS nontender no HSM no CCE nonfocal Juan Lazcano MD Jul 21, 2019 12:56
--- NOTE | 2019-07-21 13:45 | NUR ---
NURSE NOTES: Dr. Lazcano discharging patient. Patient informed but he feels he still needs treatment for bloody diarrhea and sciatic pain that has not let him ambulate. Will report to .
--- NOTE | 2019-07-21 14:44 | NUR ---
NURSE NOTES: Discharge held off for now. Order received for PT eval and case management consult.
--- NOTE | 2019-07-21 14:47 | NUR ---
CASE MANAGEMENT:REVIEW 07/21/19 SI: LGIB. S/P 4 UNITS PRBC'S 97.7 106 20 120/59 95% ON ? H/H-8.9/25.2 K-3.3 IS: IVF@75/HR PERCOCET PO Q4HRS PRN : TELEMETRY STATUS DCP: FROM HOME
[2019-07-21 16:56] LABS: BILIRUBIN, URINE NEGATIVE (NEGATIVE); COLOR,URINE PALE YELLOW; GLUCOSE, URINE (UA) NEGATIVE (NEGATIVE); KETONES,URINE NEGATIVE (NEGATIVE); LEUKOCYTE ESTERASE ,URINE 2+ (NEGATIVE); NITRITE,URINE POSITIVE (NEGATIVE); PH,URINE 5 (4.5-8.0); PROTEIN,URINE NEGATIVE (NEGATIVE); UROBILINOGEN,URINE NORMAL MG/DL (0.0-1.0)
[2019-07-21 16:57] LABS: APPEARANCE,URINE SLIGHTLY CLOUDY
--- NOTE | 2019-07-21 19:16 | NUR ---
HAND-OFF: Report given to Sb Araiza. Patient stable. Endorsed plan of care. Patient to be transfered to [facility]. Endorsed that no bloody stool for last BM.
--- NOTE | 2019-07-21 21:55 | NUR ---
NURSE NOTES: Received report from SARAHI Basurto. Patient a/a/o x 4, breathing unlabored on room air without distress. Constant pain verbalized, patient is on PRN pain medication to control the pain. Will follow up with ordered pain management. Otherwise, patient is in stable condition. IV noted on left antecubital intact, dry, clean, and patent running NS @ 75 mls/hr. Excoriation noted between the perianal area due to previous episodes of diarrhea and melena. Belongings confirmed with the patient and transferring nurse. Oriented to the unit and the room. Bed placed at the lowest with alarm, brake, and siderails up for safety. Call light placed within reach and encouraged to use. Will continue to monitor and provide care as ordered.
--- NOTE | 2019-07-21 22:17 | NUR ---
Report given to Minsu RN. Patient safely transferred to [facility]. [facility] is stable. [facility]
[2019-07-22] VITALS: BP 126/75
[2019-07-22] MEDS ORDERED: HYDROcodone/Acetamin 10/325 tab ORAL PRN (00:30)
[2019-07-22 04:00] VITALS: BP 123/72
--- NOTE | 2019-07-22 06:40 | NUR ---
NURSE NOTES: No episode of diarrhea or melena noted during the shift. Will continue to monitor.
--- NOTE | 2019-07-22 07:03 | NUR ---
NURSE NOTES: Report received from Minsu RN, rounds made. Patient resting in semi-fowlers position in bed. No SOB on RA, no NV. Pain to LLE 8/10, will medicate as ordered. LAC heplock intact. No active bleeding noted. No diarrhea. Call light in reach, bed in lowest position, will continue to monitor.
[2019-07-22 07:15] LABS: BASOPHILS % (AUTO) 0.5 % (0.0-2.0); EOSINOPHILS % (AUTO) 1.9 % (0.0-3.0); HEMATOCRIT 27.3 % (42.0-52.0); HEMOGLOBIN 9.3 G/DL (14.2-18.0); LYMPHOCYTES % (AUTO) 21.4 % (20.0-45.0); MEAN CORPUSCULAR VOLUME 92 FL (80-99); MONOCYTES % (AUTO) 7.3 % (1.0-10.0); PLATELET COUNT 331 K/UL (150-450); RED BLOOD COUNT 2.96 M/UL (4.70-6.10); RED CELL DISTRIBUTION WIDTH 13.1 % (11.6-14.8); WHITE BLOOD COUNT 8.4 K/UL (4.8-10.8)
--- NOTE | 2019-07-22 07:19 | NUR ---
HAND-OFF: Report given to SARAHI Lantigua. Patient in stable condition. Endorsed plan of care.
[2019-07-22 08:00] VITALS: BP 125/77
--- NOTE | 2019-07-22 08:42 | General Progress Note ---
Assessment/Plan Assessment/Plan: anemia s/p transfusion LGIB gastritis sciatica PLAN HH improved iron and prilosec on dc no further work up planned ok to dc home impression, plan, and exam edited and reviewed in detail care discussed with RN Subjective Allergies: Coded Allergies: No Known Allergies (Unverified , 07/19/19) Subjective findings noted d/w gi patient cleared Objective Last 24 Hour Vital Signs Date Time Temp Pulse Resp B/P (MAP) Pulse Ox O2 Delivery O2 Flow Rate FiO2 07/22/19 04:00 98.3 90 18 123/72 (89) 97 07/22/19 00:00 98.7 95 18 126/75 (92) 96 07/21/19 22:02 97.8 07/21/19 22:00 Room Air 07/21/19 21:00 Room Air 07/21/19 20:00 97.8 94 20 113/65 (81) 96 07/21/19 20:00 96 07/21/19 16:00 94 07/21/19 16:00 97.1 99 20 127/78 (94) 96 07/21/19 11:59 97.7 106 20 120/59 (79) 95 07/21/19 11:37 106 07/21/19 10:23 94 18 100 07/21/19 09:33 93 18 99 07/21/19 09:05 98.3 91 20 122/76 100 Nasal Cannula 3 07/21/19 09:00 Room Air 07/21/19 08:53 94 22 125/74 99 Nasal Cannula 3 07/21/19 08:48 96 18 128/71 99 Nasal Cannula 3 07/21/19 08:43 98.1 93 18 132/77 99 Nasal Cannula 3 Intake and Output 07/21/19 07/22/19 19:00 07:00 Intake Total 1455 ml 960 ml Output Total 300 ml 600 ml Balance 1155 ml 360 ml Intake Oral 480 ml 360 ml IV Total 975 ml 600 ml Output Urine Total 300 ml 600 ml # Voids 1 # Bowel Movements 3 1 Laboratory Tests 07/21/19 13:55: Urine Color Pale yellow, Urine Appearance Slightly cloudy, Urine pH 5, Urine Specific [place] 1.015, Urine Protein Negative, Urine Glucose (UA) Negative, Urine Ketones Negative, Urine Blood 2+H, Urine Nitrite PositiveH, Urine Bilirubin Negative, Urine Urobilinogen Normal, Urine Leukocyte Esterase 2+H, Urine RBC 10-15H, Urine WBC 60-80H, Urine Squamous Epithelial Cells Few, Urine Bacteria ManyH 07/22/19 06:25: White Blood Count 8.4, Red Blood Count 2.96L, Hemoglobin 9.3L, Hematocrit 27.3L , Mean Corpuscular Volume 92, Mean Corpuscular Hemoglobin 31.5H, Mean Corpuscular Hemoglobin Concent 34.1, Red Cell Distribution Width 13.1, Platelet Count 331, Mean Platelet Volume 4.8L, Neutrophils (%) (Auto) 69.0, Lymphocytes ( %) (Auto) 21.4, Monocytes (%) (Auto) 7.3, Eosinophils (%) (Auto) 1.9, Basophils (%) (Auto) 0.5 Height (Feet): 6 Height (Inches): 0.00 Weight (Pounds): 164 Objective WDWN NAD clear breath sounds bilaterally without rhonchi or wheeze [id number] without MRG NABS nontender no HSM no CCE nonfocal Juan Lazcano MD Jul 22, 2019 08:42
--- NOTE | 2019-07-22 09:27 | Consultation ---
History of Present Illness General Date patient seen: Jul 22, 2019 Chief Complaint: Present Illness Allergies: Coded Allergies: No Known Allergies (Unverified , 07/19/19) Medication History Scheduled Ferrous Sulfate (Iron), 325 MG PO TWICE A DAY, (Reported) Gabapentin* (Neurontin*), 300 MG ORAL THREE TIMES A DAY, (Reported) Pantoprazole* (Protonix*), 40 MG ORAL DAILY, (Reported) [metoprolol tartrate], 75 MG ORAL DAILY, (Reported) Scheduled PRN Ibuprofen* (Motrin*), 600 MG ORAL Q12HR PRN for For Pain, (Reported) Patient History Healthcare decision maker Resuscitation status Full Code Advanced Directive on File Physical Exam Last 24 Hour Vital Signs Date Time Temp Pulse Resp B/P (MAP) Pulse Ox O2 Delivery O2 Flow Rate FiO2 07/22/19 04:00 98.3 90 18 123/72 (89) 97 07/22/19 00:00 98.7 95 18 126/75 (92) 96 07/21/19 22:02 97.8 07/21/19 22:00 Room Air 07/21/19 21:00 Room Air 07/21/19 20:00 97.8 94 20 113/65 (81) 96 07/21/19 20:00 96 07/21/19 16:00 94 07/21/19 16:00 97.1 99 20 127/78 (94) 96 07/21/19 11:59 97.7 106 20 120/59 (79) 95 07/21/19 11:37 106 07/21/19 10:23 94 18 100 07/21/19 09:33 93 18 99 Intake and Output 07/21/19 07/22/19 19:00 07:00 Intake Total 1455 ml 960 ml Output Total 300 ml 600 ml Balance 1155 ml 360 ml Intake Oral 480 ml 360 ml IV Total 975 ml 600 ml Output Urine Total 300 ml 600 ml # Voids 1 # Bowel Movements 3 1 Laboratory Tests Test 07/21/19 13:55 07/22/19 06:25 Urine Color Pale yellow Urine Appearance Slightly cloudy Urine pH 5 (4.5-8.0) Urine Specific [place] 1.015 (1.005-1.035) Urine Protein Negative (NEGATIVE) Urine Glucose (UA) Negative (NEGATIVE) Urine Ketones Negative (NEGATIVE) Urine Blood 2+ (NEGATIVE) H Urine Nitrite Positive (NEGATIVE) H Urine Bilirubin Negative (NEGATIVE) Urine Urobilinogen Normal MG/DL (0.0-1.0) Urine Leukocyte Esterase 2+ (NEGATIVE) H Urine RBC 10-15 /HPF (0 - 0) H Urine WBC 60-80 /HPF (0 - 0) H Urine Squamous Epithelial Cells Few /LPF (NONE/OCC) Urine Bacteria Many /HPF (NONE) H White Blood Count 8.4 K/UL (4.8-10.8) Red Blood Count 2.96 M/UL (4.70-6.10) L Hemoglobin 9.3 G/DL (14.2-18.0) L Hematocrit 27.3 % (42.0-52.0) L Mean Corpuscular Volume 92 FL (80-99) Mean Corpuscular Hemoglobin 31.5 PG (27.0-31.0) H Mean Corpuscular Hemoglobin Concent 34.1 G/DL (32.0-36.0) Red Cell Distribution Width 13.1 % (11.6-14.8) Platelet Count 331 K/UL (150-450) Mean Platelet Volume 4.8 FL (6.5-10.1) L Neutrophils (%) (Auto) 69.0 % (45.0-75.0) Lymphocytes (%) (Auto) 21.4 % (20.0-45.0) Monocytes (%) (Auto) 7.3 % (1.0-10.0) Eosinophils (%) (Auto) 1.9 % (0.0-3.0) Basophils (%) (Auto) 0.5 % (0.0-2.0) Microbiology Date/Time Source Procedure Growth Status 07/21/19 13:55 Urine,Clean Catch Urine Culture - Preliminary Gram Negative Bacillus 1 Resulted Height (Feet): 6 Height (Inches): 0.00 Weight (Pounds): 164 Medications Current Medications Medications (Trade) Dose Ordered Sig/Thelma Route PRN Reason Start Time Stop Time Status Last Admin Dose Admin Acetaminophen/ Hydrocodone Bitart ([place] 10/325) 1 tab Q4H PRN ORAL moderate pain 07/22/19 00:30 07/26/19 23:44 Nicotine (Nicoderm) 1 patch DAILY TDERMAL 07/22/19 09:00 08/19/19 06:14 07/22/19 09:03 Ondansetron HCl (Zofran) 4 mg Q6H PRN IVP Nausea & Vomiting 07/21/19 23:45 08/18/19 23:44 Oxycodone/ Acetaminophen (Percocet 10/325) 1 tab Q4H PRN ORAL Severe Pain (Pain Scale 7-10) 07/22/19 00:15 07/27/19 20:14 07/22/19 09:01 Pantoprazole (Protonix) 40 mg EVERY 12 HOURS ORAL 07/22/19 09:00 08/19/19 08:59 07/22/19 09:01 Sodium Chloride 1,000 ml @ 75 mls/hr [id number] IV 07/21/19 22:15 08/18/19 23:44 07/21/19 22:20 Assessment/Plan Assessment/Plan: (1) Lumbar Radiculopathy (2) R/O Lumbar Herniated disc (3) Muscle spasm seen dictated Woodrow Jeter Jul 22, 2019 09:27
--- NOTE | 2019-07-22 10:10 | NUR ---
PT EVALUATION NOTE Patient seen for initial evaluation. Patient presents with generalized weakness and LLE pain which affects patient's ability to perform mobility tasks safely. Ambulation limited to 10 ft with FWW, antalgic gait, slowed velocity with increased use of BUEs for support. Patient will benefit from skilled inpatient PT intervention to address strength and ambulation for improved level of functional mobility. Anticipate discharge home once medically cleared by MD. Recommend FWW for ambulation. Addendum: 07/22/19 at 1111 by ALBERTO MAN PT Amended: Links added.
[2019-07-22 12:00] VITALS: BP 155/95
--- NOTE | 2019-07-22 13:00 | NUR ---
NURSE NOTES: Communicated with Sasha GRIGGS regarding patient's discharge planning. Patient does not want to go home, does not have help at home, only a roommate. Ordered/provided FWW, put together by PT. Prescriptions x2 sent to [facility] pharmacy to be filled. Dr. Lazcano notified of PT assessment and activity tolerance, and pain prior to PT and after, orders to continue the same: patient to be discharged home today. Patient updated throughout the day. Nursing machine operations supervisor and charge nurse discussed discharge plans with patient as well.
--- NOTE | 2019-07-22 13:32 | CDS Physician Query ---
Clarification is required for compliance, coding accuracy, and to reflect severity of illness for this patient Dear Zandra Cabrera MD Date: 07/22/2019 Is Manager/ CDS Name: Ravi Estes 58-year-old male presents for GIB. Patient with black tarry stools for the last 4 days. Now underwent transfusion. States he has had similar bloody stools in the past.+ abdominal pain. States he has had prior perforated viscus in the past. Denies fevers or chills. Denies chest pain. Denies taking blood thinners. No other aggravating relieving factors. Denies any other associated symptoms Assessment/Plan Assessment/Plan: Assessment - Melena - Anemia - low albumin - ?malnutrition, ? proteinuria - Chronic back pain, Sciatica, NSAID use - h/o PUD - h/o AAA Hb:4.3 Transfusion RBC Please clarify the specific type of anemia below: Acuity [X]Acute []Acute on Chronic []Chronic Etiology [X] Blood loss [] ESRD [] Neoplastic disease [] Iron deficiency [] GI Bleeding [] Anemia of chronic disease [] Dilutional [] Postoperative [] Unable to determine [] Other: Present on Admission: [] Yes [] No [] Clinically Undetermined __zandra Villa 07/23/19 Physician signature Date Please also document in your Progress Notes and/or Discharge Summary and indicate if the condition was present on admission. MTDD
--- NOTE | 2019-07-22 13:35 | CDS Physician Query ---
Clarification is required for compliance, coding accuracy, and to reflect severity of illness for this patient Dear Juan Severino MD Date: 07/22/2019 [employer] Chip Sorter/CDS Name: Ravi Estes 58-year-old male presents for GIB. Patient with black tarry stools for the last 4 days. Now underwent transfusion. States he has had similar bloody stools in the past.+ abdominal pain. States he has had prior perforated viscus in the past. Denies fevers or chills. Denies chest pain. Denies taking blood thinners. No other aggravating relieving factors. Denies any other associated symptoms MALNUTRITION documented on Consultation notes Albumin: 1.8 BMI: 22.2 Please select the most appropriate option: [] Protein/Calorie Malnutrition [] Mild [] Moderate [x] Severe [x] Hypoalbuminemia [] Cachexia [] Underweight [] Intestinal malabsorption [] Other [] Unable to determine [] Not Applicable Present on Admission: [x] Yes [] No [] Clinically Undetermined Physician signature Date Please also document in your Progress Notes and/or Discharge Summary and indicate if the condition was present on admission. MTDD
[2019-07-22 16:00] VITALS: BP 152/91
[2019-07-22] MEDS ORDERED: NEURONTIN100 MG ORAL (18:36)
[2019-07-22] MEDS ORDERED: PROTONIX40 MG ORAL (18:37)
[2019-07-22] MEDS ORDERED: IRON325 M1 PO (18:38)
--- NOTE | 2019-07-22 18:55 | NUR ---
NURSE NOTES: Discharge instructions reviewed with patient, aware patient must follow up with PCP for outpatient MRI of L spine, verbalized understanding. Reviewed new medications.
--- NOTE | 2019-07-22 19:30 | Operative Note - Dictated ---
DATE OF OPERATION: 07/21/2019 GASTROENTEROLOGY PROCEDURE PROCEDURE: Upper gastrointestinal endoscopy with biopsy. SURGEON: Jyoti Villa M.D. ANESTHESIA: Please see the separate anesthesiologist notes for details. PRE-ENDOSCOPIC DIAGNOSIS: Upper gastrointestinal bleeding. POST-ENDOSCOPIC DIAGNOSIS: Erosive and ulcerative gastritis, status post biopsy. PROCEDURE IN DETAIL: Procedure, its risks, indications, alternatives, and possible complications were explained and informed consent was obtained. The patient was then sedated in the left lateral decubitus position. A diagnostic upper endoscope was introduced through the oropharynx and advanced to the duodenum without difficulty. The endoscope was then gradually withdrawn and mucosa examined carefully. Examination of the upper gastrointestinal mucosa revealed erosive and ulcerative antrum gastritis with multiple small shallow diminutive ulcers and erosions seen throughout the antrum. Biopsies were sent to pathology for review. There was no active bleeding. The endoscope was removed and the patient was sent to Recovery in good condition. COMPLICATIONS: None. RECOMMENDATIONS: 1. Follow up biopsy results. 2. Check and treat Helicobacter pylori if positive. 3. Avoid nonsteroidal anti-inflammatory drugs. Jyoti Villa M.D. DR: ALFREDO JOB#: [id number] CC:
--- NOTE | 2019-07-22 19:30 | NUR ---
NURSE NOTES: Received report from SARAHI Lantigua. Patient sitting up in bed in stable condition. Patient requesting to be sent to rehabilitation center r/t back pain. Explained that primary care physician Neno KEVIN did not recommend rehab services and that he will be discharged home with front wheel walker, prescribed medication and home medication. Removed Left arm IV, no bleeding. Patient able to ambulate to wheelchair and was transported home by family friend.
--- NOTE | 2019-07-22 19:40 | NUR ---
HAND-OFF: Report given to Dao MCCLAIN, rounds made. Endorsed patient to be discharged today, awaiting on ride, discharge instructions reviewed and signed/given to patient. Addendum: 07/22/19 at 2104 by Rhina Dowell RN Endorsed prescription medications filled from [facility] and are [facility] at [facility]. Patient's home medications are to be picked up from pharmacy prior to discharge.
[2019-07-22] MEDS ORDERED: Tubing Blood Filter IV ONE (20:43)
[2019-07-22] MEDS ORDERED: NS 500ML ONE (20:43)
--- NOTE | 2019-07-23 03:45 | Consultation ---
DATE OF CONSULTATION: 07/22/2019 PAIN MANAGEMENT CONSULTATION CONSULTING PHYSICIAN: Cory Saini M.D. REFERRING PHYSICIAN: Juan Lazcano M.D. PHYSICIAN LENS BLOCK GAUGER: Martín Kaye CHIEF COMPLAINT: Low back pain. HISTORY OF PRESENT ILLNESS: This is a 58-year-old male, who has been seen on the Med/Surg floor of [facility] for comprehensive pain management consultation. The patient has been having low back pain for the past month which has been becoming more severe over the last week and shooting down is left leg not reduced with OTC medication. Patient was admitted to the hospital under the care of Dr. Lazcano due to GI bleed. Reports that he had been taking 20 Advil a day due to the severity of this pain and he had inability with ambulation and has been treated for the GI bleed. However, has continued pain. He is on [place] 10/325 one tablet every four hours as needed for moderate pain and Percocet 10/325 one tablet every four hours as needed for severe pain. We were consulted so that the patient would have adequate pain control while here in the hospital. PAST MEDICAL HISTORY: AAA and hypertension. PAST SURGICAL HISTORY: Perforated ulcer repair. SOCIAL HISTORY: Denies smoking tobacco, drinking alcohol, or drug abuse. ALLERGIES: No known drug allergies. MEDICATIONS: Metoprolol and ibuprofen. REVIEW OF SYSTEMS: Denies rash, fever, chills, sweating, dizziness, drowsiness, blurred vision, sore throat, or change in weight. No shortness of breath or chest pain. No nausea, vomiting, diarrhea, or blood in the stool or urine. No dysuria. He is complaining of low back pain. PHYSICAL EXAMINATION: GENERAL: Alert, awake, and oriented. VITAL SIGNS: Blood pressure 123/70, heart rate 90, oxygen saturation 98%, respiratory rate 18, temperature 98.2 degrees Fahrenheit. HEENT: PERRLA. NECK: Range of motion is full in all directions. No tenderness to paracervical muscles. No adenopathy. LUNGS: Decreased breath sounds bilaterally. HEART: S1 and S2, regular. ABDOMEN: Soft, nontender. BACK: Range of motion is decreased in flexion and extension. No tenderness to paraspinal muscles. No tenderness to trapezius or rhomboid muscles. EXTREMITIES: Upper and lower extremity range of motion is decreased due to the patient's condition. No cyanosis. No clubbing. Sensory is reduced. Reflexes are not obtainable. No adenopathy. ASSESSMENT AND PLAN: This is a 58-year-old male with lumbar radiculopathy, rule out lumbar herniated disk, muscle spasm. At this time, the patient will begin on Percocet while here in the hospital. We will start him on Neurontin 300 mg tablets three times a day as well as we will order an MRI of lumbar spine without contrast to rule out further pathology in the lower back. If MRI is not done, to be discharged home as per produce manager. However, we will recommend to perform an MRI as an outpatient as soon as possible. Advised he needed to follow up with his primary care physician promptly when discharged if MRI is not done here in the hospital. A prescription for Neurontin 300 mg tablets three times a day was also written for the patient in anticipation for discharge. The patient was discussed with Dr. Saini and he concurred. We will follow up with the patient. Thank you very much for the courtesy of this consultation. Cory Saini M.D. SUSANA Kaye DR: LATIA JOB#: [id number] CC: ELOINA
--- NOTE | 2019-07-23 11:08 | NUR ---
*-* INSURANCE *-* UPDATED AVAILABLE HAVE BEEN FAXED NO DISCHARGE ORDER IN THE SYSTEM [facility]: GRACIELA P- [phone] F- [phone]............REVIEW/CLINICAL
--- NOTE | 2019-07-24 15:08 | Discharge Summary ---
Discharge Summary Discharge Summary _ DATE OF ADMISSION: 07/19/2019 DATE OF DISCHARGE: 07/22/2019 DISCHARGED BY: Dr. Lazcano REASON FOR ADMISSION: 58 years old male presented for lower GI bleeding. Patient with complaint of black tarry stools for the last 4 days. Patient had similar bloody stool in the past along with abdominal pain. Patient reported prior perforated viscus. No fever or chills. No chest pain or shortness of breath. Patient was not on blood thinners. In emergency department patient was tachycardic . Pulse oximetry was stable on room air . laboratory work-up revealed leukocytosis with WBC 13.8 ,hemoglobin 4.3 , hematocrit 12.1 ,platelet count 362. Stable electrolytes. BUN 59, creatinine 1.7. Albumin 1.8. EKG revealed sinus tachycardia, no acute ischemic changes. Stable LFT. Lipase 56. CT of the abdomen and pelvis revealed no definite acute abdominal process. No findings to suggest etiology of stated clinical history of GI bleeding. Aortic endograft in place. COPD changes at the lung bases. Urinalysis revealed pyuria and many bacteria. In emergency department patient typed, crossed and started on blood transfusion, staretd on IV fluids, received empiric antibiotic and admitted for further management . CONSULTANTS: GI specialist Dr. Villa pain specialist Dr. Saini [facility]: Patient admitted and started on IV fluids. Patient was kept n.p.o. Patient started on PPI. GI specialist closely followed. Pain management was addressed as needed. Patient undergone EGD , which revealed erosive and ulcerative gastritis , status post biopsy, 2 cm hiatal hernia, irregular zone of GE junction, status post biopsy. Biopsy results revealed minimal chronic antral gastritis with no activities. No evidence of H. pylori. No evidence of intestinal metaplasia, dysplasia or malignancy. Lower esophageal near GE junction biopsy revealed mild chronic carditis. Squamous esophageal mucosa with a mild submucosal hemorrhage, but no other significant histopathological abnormalities. Patient undergone transfusion of total of 4 units of packed red blood cells. Prior to discharge hemoglobin 9.3 hematocrit 27.3. Patient was on PPI. Urine culture revealed E. coli. Patient was asymptomatic, no urinary complaints, no fevers, no leukocytosis, presumed to be asymptomatic bacteriuria, not requiring treatment. Renal parameters and electrolytes were closely monitored. Potassium was replaced. Prior to discharge BUN 16, creatinine 0.8. Acute renal failure was possibly due to dehydration and resolved with IV fluids. Pain management was addressed as needed as pain specialist recommendation. Fall precaution maintained. Patient was working with physical therapy. Front wheel walker was arranged prior to discharge. Patient was counseled on smoking cessation. Patient started on nicotine patch. Patient clinically stabilized and was ready for discharge home. Prescription for Protonix and oral iron supplements provided. FINAL DIAGNOSES: Lower GI bleeding Acute anemia due to blood loss Severe protein calorie malnutrition Hypoalbuminemia Acute renal failure -resolved Status post EGD: erosive and ulcerative gastritis, status post biopsy, hiatal hernia, irregularity, status post biopsy Sciatica DISCHARGE MEDICATIONS: See Medication Reconciliation list. DISCHARGE INSTRUCTIONS: Patient was discharged home. Follow-up with primary care provider in 1 week. I have been assigned to dictate discharge summary for this account. I was not involved in the patient's management. Dian Montaño NP Jul 24, 2019 15:08
== END 2019-07-22 20:44 | disposition home or self-care (01) | DRG 377 ==
LOC: EDBD 20:04 → EMR 20:15 → EDBEDREQ 21:37 → 2E 21:40 → EDBEDREQ 22:24 → 3E 07-21 21:52
PROC: 30233N1 Transfusion of Nonautologous Red Blood Cells into Peripheral Vein, Percutaneous Approach (ICD-10-PCS; principal; 2019-07-19)
PROC: 0DB78ZX Excision of Stomach, Pylorus, Via Natural or Artificial Opening Endoscopic, Diagnostic (ICD-10-PCS; 2019-07-21)
DX: K29.01 Acute gastritis with bleeding (principal); E43 Unspecified severe protein-calorie malnutrition; D62 Acute posthemorrhagic anemia; M54.16 Radiculopathy, lumbar region; M54.30 Sciatica, unspecified side; K44.9 Diaphragmatic hernia without obstruction or gangrene
CPT/HCPCS: 36415; 74176; 80048; 80053; 81001; 83690; 83735; 85007; 85025; 85610; 85730; 86850; 86900; 86901; 86920; 87086; 87181; 94003; 94150; 96361; 96374; 99291; J7030; J8499